=== PATIENT | male | born 1965 | race Caucasian/White ===

== ENCOUNTER 2022-06-23 20:15 | Emergency (ER) | payer BC ==
[~2022-06-23] VITALS: Ht 172.7 cm; Wt 81.6 kg
[2022-06-23 20:35] VITALS: BP_SYST 142
[2022-06-23] MEDS ORDERED: predniSONE 20 MG TABLET PO ONE (21:30)
[2022-06-23] MEDS ORDERED: IPRATROPIUM/ALBUTEROL SULFATE 3 ML AMPUL.NEB (DUONEB) INH ONE (21:30)
--- NOTE | 2022-06-23 21:45 | NUR ---
PT BROUGHT TO ROOM 4 FOR BREATHING TREATMENT
[2022-06-23] MEDS ORDERED: ZIT250 PO (21:57)
[2022-06-23] MEDS ORDERED: PRED20TA PO (21:57)
[2022-06-23] MEDS ORDERED: ALBMDI INH (21:57)
[2022-06-23 22:27] VITALS: BP_SYST 135
--- NOTE | 2022-06-23 22:27 | NUR ---
Patient given written and verbal discharge instructions and verbalizes understanding. ER MD discussed with patient the results and treatment provided. Patient in stable condition. ID arm band removed. Rx of ALBUTEROL, PREDNISONE, AZITHROMYCIN given. Patient educated to follow up with PMD. Pain Scale 0/10. Opportunity for questions provided and answered. Medication side effect fact sheet provided.
== END 2022-06-23 22:27 | disposition home or self-care (01) ==
LOC: SED 20:15
DX: J40 Bronchitis, not specified as acute or chronic (principal); R05.9 Cough, unspecified; R09.81 Nasal congestion; E11.9 Type 2 diabetes mellitus without complications; F17.200 Nicotine dependence, unspecified, uncomplicated; Z79.899 Other long term (current) drug therapy
CPT/HCPCS: 99283; 71045; J7512